=== PATIENT | female | born 1995 | race African-American/Black ===

== ENCOUNTER 2022-05-18 00:32 | Emergency (ER) | payer SELFPAY ==
[~2022-05-18] VITALS: Ht 167.6 cm; Wt 97.7 kg
[2022-05-18 01:08] VITALS: BP 121/75
== END 2022-05-18 04:38 | disposition home or self-care (01) ==
LOC: ER 00:32
DX: L05.01 Pilonidal cyst with abscess (principal); Z90.89 Acquired absence of other organs
CPT/HCPCS: 10080

== ENCOUNTER 2022-05-20 20:15 | Emergency (ER) | payer SELFPAY ==
[~2022-05-20] VITALS: Ht 167.6 cm; Wt 97.7 kg
[2022-05-21 03:29] VITALS: BP 117/73
== END 2022-05-21 04:06 | disposition home or self-care (01) ==
LOC: ER 20:15
DX: L05.01 Pilonidal cyst with abscess (principal); Z90.89 Acquired absence of other organs

== ENCOUNTER 2022-05-24 20:40 | Emergency (ER) | payer SELFPAY ==
[~2022-05-24] VITALS: Ht 167.6 cm; Wt 97.7 kg
[2022-05-24 23:37] VITALS: BP 137/89
== END 2022-05-24 23:42 | disposition home or self-care (01) ==
LOC: ER 20:41
DX: L05.01 Pilonidal cyst with abscess (principal); Z90.89 Acquired absence of other organs